=== PATIENT | female | born 1990 ===

== ENCOUNTER 2023-02-25 10:55 | Inpatient (IN) | payer OTHER ==
[~2023-02-25] VITALS: Ht 160 cm; Wt 101.2 kg
[2023-02-25] VITALS (9 sets, daily range): BP systolic 100–140; BP diastolic 56–78; O2SAT 97
[2023-02-25] MEDS ORDERED: LIDOCAINE 1% MDV 20ML VIAL INFIL PRN (11:55)
[2023-02-25] MEDS ORDERED: CARBOPROST TROMETHAMINE 250 MCG/ML AMP IM PRN (11:55)
[2023-02-25] MEDS ORDERED: METHYLERGONOVINE MALEATE 0.2MG/ML 1ML VIAL IM PRN (11:55)
[2023-02-25] MEDS ORDERED: OXYTOCIN DRIP 30 UNITS in IV 1 EA IV PRN (11:55)
[2023-02-25] MEDS ORDERED: TRANEXAMIC ACID INJection 1,000 MG in NS 100 ML IV PRN (11:55)
[2023-02-25 13:11] LABS: HEMATOCRIT 37.3 % (36.0-47.0); HEMOGLOBIN 12.2 g/dl (12.0-15.5); MEAN CORPUSCULAR HEMOGLOBIN 28.8 pg (27.0-33.0); MEAN CORPUSCULAR HGB CONC 32.7 g/dl (32.0-36.5); RED BLOOD COUNT 4.24 10^6/uL (4.00-5.40); WHITE BLOOD COUNT 8.4 10^3/uL (4.0-10.0)
[2023-02-25 13:35] LABS: PLATELET COUNT, AUTOMATED 99 10^3/uL (150-450)
[2023-02-25 14:09] LABS: HIV 1&2 SCREEN NEGATIVE (NEGATIVE)
[2023-02-25] MEDS ORDERED: LR 1,000 ML IV SCH (15:00)
[2023-02-25] MEDS ORDERED: OXYTOCIN DRIP 30 UNITS in IV 1 EA IV SCH (15:00)
[2023-02-25] MEDS ORDERED: ceFAZolin SOD 2 GM in IV 1 EA IV STA (15:52)
[2023-02-25] MEDS ORDERED: ceFAZolin 1GM VIAL As Ordered ONE (16:18)
[2023-02-25] MEDS ORDERED: ACETAMINOPHEN 500 MG TAB PO PRN (17:30)
[2023-02-25] MEDS ORDERED: METHYLERGONOVINE MALEATE 0.2 MG TAB PO PRN (17:30)
[2023-02-25] MEDS ORDERED: DOCUSATE SODIUM 100MG CAPSULE PO PRN (17:30)
[2023-02-25] MEDS ORDERED: DIBUCAINE 1% OINTMENT 30GM TOP PRN (17:30)
[2023-02-25] MEDS ORDERED: IBUPROFEN 800 MG TAB PO PRN (17:30)
[2023-02-25] MEDS ORDERED: IBUPROFEN 600MG TAB PO PRN (17:30)
[2023-02-25] MEDS ORDERED: ACETAMINOPHEN TAB 650MG DOSE (2X325MG) PO PRN (17:30)
[2023-02-25] MEDS ORDERED: RHOGAM 300MCG (1500IU) INJ IM SCH (17:30)
[2023-02-26] MEDS ORDERED: ceFAZolin SOD 1 GM in D5W MINI-BAG PLUS 50 ML IV SCH ×2
[2023-02-26 06:00] VITALS: BP 118/66; O2SAT 97
[2023-02-26 07:20] LABS: HEMATOCRIT 33.6 % (36.0-47.0); MEAN CORPUSCULAR HEMOGLOBIN 28.9 pg (27.0-33.0); MEAN CORPUSCULAR HGB CONC 32.7 g/dl (32.0-36.5); MEAN CORPUSCULAR VOLUME 88.4 fl (80.0-96.0); WHITE BLOOD COUNT 6.7 10^3/uL (4.0-10.0)
[2023-02-26 07:22] LABS: PLATELET COUNT, AUTOMATED 78 10^3/uL (150-450)
[2023-02-26] MEDS ORDERED: PRENATAL VITAMINS CHEWABLE TABLET PO SCH (09:00)
[2023-02-26 17:36] VITALS: BP 108/51; O2SAT 100
[2023-02-27] MEDS ORDERED: MEASLES,MUMPS,RUBELLA VACCINE INJ (MMR-II) SC.IMMUN ONE (09:00)
== END 2023-02-26 18:57 | disposition home or self-care (01) | DRG 560 ==
LOC: M LDO 10:55 → EDBD 10:55 → M LDI 11:43 → M OBS 19:00
PROVIDERS: ADMIT Obstetrics & Gynecology; ATTEND Obstetrics & Gynecology
PROC: 10E0XZZ Delivery of Products of Conception, External Approach (ICD-10-PCS; principal; 2023-02-25)
PROC: 10907ZC Drainage of Amniotic Fluid, Therapeutic from Products of Conception, Via Natural or Artificial Opening (ICD-10-PCS; 2023-02-25)
DX: O48.0 Post-term pregnancy (principal); Z37.0 Single live birth; Z3A.41 41 weeks gestation of pregnancy